=== PATIENT | female | born 1955 | race Caucasian/White ===

== ENCOUNTER 2018-07-13 12:39 | Emergency (ER) | payer BC ==
[2018-07-13] MEDS ORDERED: Tetanus/Diphtheria Toxoids 0.5 ml Syringe IM ONE ×2 (14:35→14:59)
--- NOTE | 2018-07-13 14:35 | C.PDOC ---
History Of Present Illness R KNEE INJURY SP FALL 3 DAYS AGO. LANDED ON R KNEE, CO PAIN AND SWELLING +ABRASION. PAIN W WALKING. NO PAIN MEDS TRIED EXAM NONTOXIC EXT RLE +MILD SWELL ANT KNEE AROM W PAIN; NO FOCAL BONY TEND. SKIN +ABRASION R ANT KNEE W MIN LOCAL ERYTHEMA, NO DC NEURO ITNACT REMAINDER NEG MDM KNEE CONTUSION W ABRASION. HO DM. XRAY, ABX, NSAIDS Time Seen by Provider: 07/13/18 14:00 Chief Complaint (Nursing): Lower Extremity Problem/Injury History Per: Patient History/Exam Limitations: no limitations Onset/Duration Of Symptoms: Days Current Symptoms Are (Timing): Still Present Severity: Moderate Past Medical History Reviewed: Historical Data, Nursing Documentation, Vital Signs Vital Signs: Last Vital Signs Temp 99.2 F 07/13/18 13:04 Pulse 87 07/13/18 13:04 Resp 18 07/13/18 13:04 BP 153/81 H 07/13/18 13:04 Pulse Ox 97 07/13/18 13:04 Primary Care Provider: Porfirio Diallo - Medical History PMH: Diabetes, HTN, Hypercholesterolemia Surgical History: No Surg Hx Family History: States: No Known Family Hx - Social History Hx Tobacco Use: No Hx Alcohol Use: No Hx Substance Use: No - Immunization History Hx Tetanus Toxoid Vaccination: No Hx Influenza Vaccination: No Hx Pneumococcal Vaccination: No Review Of Systems Except As Marked, All Systems Reviewed And Found Negative. Musculoskeletal: Positive for: Other (right knee pain) Physical Exam - Physical Exam Appears: Non-toxic Skin: Normal Color, Warm, Dry, Other (abrasion to right anterior knee with minimal local erythema, no discharge) Head: Atraumatic, Normacephalic Eye(s): bilateral: Normal Inspection Extremity: Normal ROM (AROM without pain in right knee), No Tenderness (focal bony tenderness), Swelling (mild swelling to anterior right knee ) Neurological/Psych: Oriented x3, Normal Speech, Normal Motor, Normal Sensation ED Course And Treatment O2 Sat by Pulse Oximetry: 97 (RA) Pulse Ox Interpretation: Normal - Other Rad R KNEE X-Ray: Interpreted by Me (NEG) Medical Decision Making Medical Decision Making: Plan: --Motrin PO --Keflex PO --Tylenol PO --X-Ray-Right Knee --Tetanus Vaccination KNEE CONTUSION W ABRASION. HO DM. XRAY, ABX, NSAIDS Disposition Counseled Patient/Family Regarding: Studies Performed, Diagnosis, Need For Followup, Rx Given - Disposition Referrals: YOUR,PMD [Other] Alma Rutherford MD [Staff Provider] - Disposition: HOME/ ROUTINE Disposition Time: 14:57 Condition: IMPROVED Prescriptions: Acetaminophen [Tylenol Extra Strength] 2 tab PO Q6 #30 tablet Cephalexin [cephalexin] 500 mg PO BID #14 cap Ibuprofen [Motrin] 600 mg PO Q6 #30 tab Mupirocin 2% Ointment [Bactroban Ointment] 1 appl TP TID #1 tube Instructions: Wound Care (DC), Knee Sprain (DC) Forms: [employer] (American) Print Language: TAIWANESE - Clinical Impression Clinical Impression: Knee contusion, Knee sprain, Knee abrasion - Scribe Statement The provider has reviewed the documentation as recorded by the Hugo Houser Provider Attestation: All medical record entries made by the Masteribmarina were at my direction and personally dictated by me. I have reviewed the chart and agree that the record accurately reflects my personal performance of the history, physical exam, medical decision making, and the department course for this patient. I have also personally directed, reviewed, and agree with the discharge instructions and disposition.
[2018-07-13 15:07] VITALS: BP 145/79; PULSE 74; RESP 16; TEMP 98.6
--- NOTE | 2018-07-13 15:26 | RAD ---
PROCEDURE: Right Knee Radiographs. Three views. HISTORY: TRAUMA COMPARISON: None available. FINDINGS: BONES: No acute displaced fracture. JOINTS: No dislocation. JOINT EFFUSION: No significant joint effusion. OTHER FINDINGS: None. IMPRESSION: No acute displaced fracture, dislocation, or significant joint effusion identified. If symptoms persist, or if there is continued clinical concern, x-ray follow-up in 7-10 days should be considered.
[2018-07-13 16:08] VITALS: O2SAT 97
== END 2018-07-13 15:07 | disposition home or self-care (01) ==
LOC: C.ER 12:39
DX: S80.211A Abrasion, right knee, initial encounter (principal); S80.01XA Contusion of right knee, initial encounter; S83.91XA Sprain of unspecified site of right knee, initial encounter; W19.XXXA Unspecified fall, initial encounter; Z23 Encounter for immunization; E11.9 Type 2 diabetes mellitus without complications; E78.00 Pure hypercholesterolemia, unspecified; I10 Essential (primary) hypertension